=== PATIENT | male | born 1955 | race African-American/Black ===

== ENCOUNTER 2020-02-26 20:22 | Emergency (ER) | payer SELFPAY ==
[~2020-02-26] VITALS: Ht 170.2 cm; Wt 75.0 kg
[2020-02-26] MEDS ORDERED: MULTIVIT INFUSN,ADULT 4,VIT K 10 ML, THIAMINE INJ 100 MG, FOLIC ACID INJ 1 MG in IV NOR... IV ONE (21:00)
[2020-02-26 21:08] LABS: BASO # 0.1 x10^3/uL (0.0-0.2); BASO % 1 % (0-3); EOS # 0.3 x10^3/uL (0.0-0.7); EOS % 3 % (0-3); HEMOGLOBIN 16.3 g/dL (13.0-17.5); LYMPH # 2.5 x10^3/uL (1.0-4.8); LYMPH % 28 % (24-48); MEAN CORPUSCULAR HEMOGLOBIN 30 pg (25-35); MEAN CORPUSCULAR HGB CONC 33 g/dL (31-37); MEAN CORPUSCULAR VOLUME 89 fL (79-100); MONO # 0.4 x10^3/uL (0.0-1.1); MONO % 5 % (0-9); NEUT # 5.7 x10^3/uL (1.8-7.7); NEUT % 64 % (31-73); PLATELET COUNT 262 x10^3/uL (140-400); RED BLOOD COUNT 5.49 x10^6/uL (4.30-5.70); RED CELL DISTRIBUTION WIDTH 15.8 % (11.5-14.5); WHITE BLOOD COUNT 8.9 x10^3/uL (4.0-11.0)
[2020-02-26 21:14] LABS: CALCIUM 8.6 mg/dL (8.5-10.1); CREATININE 0.9 mg/dL (0.7-1.3); GFR 102.8; POTASSIUM 3.6 mmol/L (3.5-5.1)
[2020-02-26 21:20] LABS: ALBUMIN 4.3 g/dL (3.4-5.0); ALBUMIN/GLOBULIN RATIO 1.1 (1.0-1.7); TOTAL BILIRUBIN 0.4 mg/dL (0.2-1.0); TOTAL PROTEIN 8.1 g/dL (6.4-8.2)
[2020-02-26 22:23] VITALS: BP 175/104
--- NOTE | 2020-02-26 22:56 | ED.ADGEN ---
Past Medical History Past Medical History: No Pertinent History Past Surgical History: No Surgical History Smoking Status: Current Every Day Smoker Alcohol Use: Occasionally General Adult EDM: Chief Complaint: ALCOHOL INTOXICATION HPI: HPI: Patient is a 64 year old AA male who presents emergency department via EMS with complaints of alcohol intoxication. EMS reports the patient was found walking on the side of the road and a motor coach driver who was concerned about him called 911. Patient reports that he was walking home to take care of his dog he denies any complaints. Patient reports that he was almost to his house and he is not sure why the ambulance came to talk to him. Patient denies any pain at this time. Limited HPI due to patient's intoxicated condition. Review of Systems: Review of Systems: Complete ROS is negative unless otherwise noted in HPI. Current Medications: Current Medications Medications (Trade) Dose Ordered Sig/Christine Start Time Stop Time Status Last Admin Dose Admin Multivitamins 10 ml/Thiamine HCl 100 mg/Folic Acid 1 mg/Sodium Chloride 1,011.2 ml @ 1,000.088 mls/hr 1X ONCE 02/26/20 21:00 02/26/20 22:00 DC 02/26/20 21:03 1,000.088 MLS/HR Allergies: Allergies: Allergies Coded Allergies Type Severity Reaction Last Updated Verified No Known Drug Allergies 02/26/20 No Physical Exam: PE: See Above Constitutional: Well developed, well nourished, no acute distress, intoxicated, unkept appearance HENT: Normocephalic, atraumatic, bilateral external ears normal, nose normal. [] Eyes: PERRLA, EOMI, conjunctiva normal, no discharge. [] Neck: Normal range of motion, no stridor. [] Cardiovascular:Heart rate regular rhythm Lungs & Thorax: Respirations even and unlabored, no retractions, no respiratory distress Abdomen: soft, no tenderness Skin: Warm, dry, no erythema, no rash. [] Extremities: No cyanosis, ROM intact, no edema. [] Neurologic: Alert and oriented X 3, no focal deficits noted. [] Psychologic: Affect intoxicated, judgement normal, mood normal Current Patient Data: Labs: Laboratory Tests Test 02/26/20 20:59 White Blood Count 8.9 x10^3/uL (4.0-11.0) Red Blood Count 5.49 x10^6/uL (4.30-5.70) Hemoglobin 16.3 g/dL (13.0-17.5) Hematocrit 49.0 % (39.0-53.0) Mean Corpuscular Volume 89 fL (79-100) Mean Corpuscular Hemoglobin 30 pg (25-35) Mean Corpuscular Hemoglobin Concent 33 g/dL (31-37) Red Cell Distribution Width 15.8 % (11.5-14.5) H Platelet Count 262 x10^3/uL (140-400) Neutrophils (%) (Auto) 64 % (31-73) Lymphocytes (%) (Auto) 28 % (24-48) Monocytes (%) (Auto) 5 % (0-9) Eosinophils (%) (Auto) 3 % (0-3) Basophils (%) (Auto) 1 % (0-3) Neutrophils # (Auto) 5.7 x10^3/uL (1.8-7.7) Lymphocytes # (Auto) 2.5 x10^3/uL (1.0-4.8) Monocytes # (Auto) 0.4 x10^3/uL (0.0-1.1) Eosinophils # (Auto) 0.3 x10^3/uL (0.0-0.7) Basophils # (Auto) 0.1 x10^3/uL (0.0-0.2) Sodium Level 147 mmol/L (136-145) H Potassium Level 3.6 mmol/L (3.5-5.1) Chloride Level 107 mmol/L (98-107) Carbon Dioxide Level 28 mmol/L (21-32) Anion Gap 12 (6-14) Blood Urea Nitrogen 9 mg/dL (8-26) Creatinine 0.9 mg/dL (0.7-1.3) Estimated GFR (Cockcroft-Gault) 102.8 BUN/Creatinine Ratio 10 (6-20) Glucose Level 118 mg/dL (70-99) H Calcium Level 8.6 mg/dL (8.5-10.1) Total Bilirubin 0.4 mg/dL (0.2-1.0) Aspartate Amino Transferase (AST) 24 U/L (15-37) Alanine Aminotransferase (ALT) 24 U/L (16-63) Alkaline Phosphatase 130 U/L (46-116) H Total Protein 8.1 g/dL (6.4-8.2) Albumin 4.3 g/dL (3.4-5.0) Albumin/Globulin Ratio 1.1 (1.0-1.7) Ethyl Alcohol Level 305 mg/dL (0-10) H Laboratory Tests 02/26/20 20:59 Laboratory Tests 02/26/20 20:59 Vital Signs: Vital Signs Date Time Temp Pulse Resp B/P (MAP) Pulse Ox O2 Delivery O2 Flow Rate FiO2 02/27/20 04:30 74 95 Room Air 02/26/20 22:23 175/104 (127) 02/26/20 20:44 97.6 18 97.6 EKG: EKG: [] Heart Score: Risk Factors: Risk Factors: DM, Current or recent (<one month) smoker, HTN, HLP, family h istory of CAD, obesity. Risk Scores: Score 0 - 3: 2.5% MACE over next 6 weeks - Discharge Home Score 4 - 6: 20.3% MACE over next 6 weeks - Admit for Clinical Observation Score 7 - 10: 72.7% MACE over next 6 weeks - Early Invasive Strategies Radiology/Procedures: Radiology/Procedures: [] Course & Med Decision Making: Course & Med Decision Making Pertinent Labs and Imaging studies reviewed. (See chart for details) 64-year-old male presented to the emergency department via EMS after a stranger called 911 concerned about the patient Patient denied any complaints Work-up included labs, patient was given 1 banana bag while in the ER. CBC was unremarkable; CMP revealed glucose of 118, sodium 147, and alk phos of 130 otherwise unremarkable; patient's blood alcohol level was 305. [id number] attempted to walk patient to assess clinical sobriety, the patient is unable to ambulate at this time patient returns to room to sleep. Will reassess patient when he awakens [id number]- Report to Dr. Maddox. I received sign out. Pt awaiting sober re-evaluation with steady gait (unable to ambulate 2/2 intoxication). Pt eloped from hospital without notifying medical staff. I had not seen or evaluated pt prior to pt eloping. Kenneth Disclaimer: Kenneth Disclaimer: This electronic medical record was generated, in whole or in part, using a voice recognition dictation system. Departure Departure Impression: Primary Impression: Alcohol intoxication Disposition: 01 DC HOME SELF CARE/HOMELESS Condition: STABLE Referrals: NO PCP (PCP) Patient Instructions: Alcohol Intoxication, [id number] Additional Instructions: Stop drinking alcohol. Follow up with your primary care doctor next week. Return to the ER if symptoms worsen. [facility] [address] [place] [address] [facility] [address] [facility] [place] [address] [facility] [address] [facility] [place] [address] [facility] [address] [place] [address] [facility] [address] [place] [address] [address] [place] [address] [facility] [address] [place] [address] [facility] [address] [place] [address] [facility] [address] [place] [address] [facility] [address] [place] [address] Problem Qualifiers Primary Impression: Alcohol intoxication Complication of substance-induced condition: uncomplicated Qualified Codes: F10.920 - Alcohol use, unspecified with intoxication, uncomplicated ANDREW PRYOR APRN Feb 26, 2020 22:56 ANGELINE MADDOX DO Feb 27, 2020 06:01
== END 2020-02-27 05:30 | disposition home or self-care (01) ==
LOC: ER 20:22
DX: F10.229 Alcohol dependence with intoxication, unspecified (principal); F17.200 Nicotine dependence, unspecified, uncomplicated
CPT/HCPCS: 36415; 80053; 85025; 96365; 99285; G0480; J3411; J3490; J7030

== ENCOUNTER 2021-06-02 10:20 | Inpatient (IN) | payer MEDICARE ==
[~2021-06-02] VITALS: Ht 175.3 cm; Wt 85.0 kg
[2021-06-02] VITALS (15 sets, daily range): BP systolic 85–184; BP diastolic 46–83
--- NOTE | 2021-06-02 10:43 | PHYS DOC ---
Past Medical History Past Medical History: No Pertinent History Past Surgical History: No Surgical History Smoking Status: Current Every Day Smoker Alcohol Use: Occasionally Adult General Chief Complaint Chief Complaint: ABDOMINAL PAIN HPI HPI Patient is a 65 year old male presenting to the emergency department for GI bleeding symptoms says he says starting this morning he started having abdominal cramping with bowel movements and had large dark red stools with a large bowel movement here as well that was obviously bloody. Patient says that he has been having bloody bowel movements for the past 2 weeks and that the reason he came to the emergency department today is because he had a syncopal episode. Patient had systolic blood pressures in the 90s to 100 region with EMS he is slightly tachycardic. Patient says that he takes aspirin intermittently but denies any other blood thinners and he denies drinking alcohol or taking NSAIDs on a regular basis. Patient appears ill but is nontoxic with slight tachycardia and hypotension noted. Review of Systems Review of Systems Constitutional: Denies fever or chills [] Eyes: Denies change in visual acuity, redness, or eye pain [] HENT: Denies nasal congestion or sore throat [] Respiratory: Denies cough or shortness of breath [] Cardiovascular: No additional information not addressed in HPI [] GI: + abdominal pain. No nausea, vomiting. + bloody stools or diarrhea [] : Denies dysuria or hematuria [] Musculoskeletal: Denies back pain or joint pain [] Integument: Denies rash or skin lesions [] Neurologic: Denies headache, focal weakness or sensory changes [] Endocrine: Denies polyuria or polydipsia [] All other systems were reviewed and found to be within normal limits, except as documented in this note. Current Medications Current Medications Current Medications Medications (Trade) Dose Ordered Sig/Christine Start Time Stop Time Status Last Admin Dose Admin Pantoprazole Sodium (PROTONIX VIAL for IV PUSH) 80 mg 1X ONCE 06/02/21 10:45 06/02/21 11:10 DC 06/02/21 11:00 80 MG Pantoprazole Sodium 80 mg/ Sodium Chloride 100 ml @ 10 mls/hr 1X ONCE 06/02/21 10:45 06/02/21 20:44 06/02/21 11:00 10 MLS/HR Sodium Chloride 1,000 ml @ 1,000 mls/hr 1X ONCE 06/02/21 10:45 06/02/21 11:44 DC 06/02/21 11:00 1,000 MLS/HR Allergies Allergies Physical Exam Physical Exam Constitutional: Ill-appearing male in no acute distress HENT: Normocephalic, atraumatic, bilateral external ears normal, oropharynx moist, no oral exudates, nose normal. [] Eyes: PERRLA, EOMI, conjunctiva normal, no discharge. [] Neck: Normal range of motion, no tenderness, supple, no stridor. [] Cardiovascular:Heart rate regular rhythm, no murmur [] Lungs & Thorax: Bilateral breath sounds clear to auscultation [] Abdomen: Bowel sounds normal, soft, no tenderness, no masses, no pulsatile masses. [] Skin: Warm, dry, no erythema, no rash. [] Back: No tenderness, no CVA tenderness. [] Extremities: No tenderness, no cyanosis, no clubbing, ROM intact, no edema. [] Neurologic: Alert and oriented X 3, normal motor function, normal sensory function, no focal deficits noted. [] Psychologic: Affect normal, judgement normal, mood normal. [] Current Patient Data Vital Signs Vital Signs Date Time Temp Pulse Resp B/P (MAP) Pulse Ox O2 Delivery O2 Flow Rate FiO2 06/02/21 10:20 98.5 95 17 130/70 (90) 95 Nasal Cannula 2.0 98.5 Lab Values Laboratory Tests Test 06/02/21 10:36 White Blood Count 11.2 x10^3/uL (4.0-11.0) H Red Blood Count 1.70 x10^6/uL (4.30-5.70) L Hemoglobin 4.9 g/dL (13.0-17.5) *L Hematocrit 15.3 % (39.0-53.0) L Mean Corpuscular Volume 90 fL (79-100) Mean Corpuscular Hemoglobin 29 pg (25-35) Mean Corpuscular Hemoglobin Concent 32 g/dL (31-37) Red Cell Distribution Width 15.8 % (11.5-14.5) H Platelet Count 217 x10^3/uL (140-400) Neutrophils (%) (Auto) 70 % (31-73) Lymphocytes (%) (Auto) 25 % (24-48) Monocytes (%) (Auto) 5 % (0-9) Eosinophils (%) (Auto) 0 % (0-3) Basophils (%) (Auto) 0 % (0-3) Neutrophils # (Auto) 7.8 x10^3/uL (1.8-7.7) H Lymphocytes # (Auto) 2.8 x10^3/uL (1.0-4.8) Monocytes # (Auto) 0.5 x10^3/uL (0.0-1.1) Eosinophils # (Auto) 0.0 x10^3/uL (0.0-0.7) Basophils # (Auto) 0.0 x10^3/uL (0.0-0.2) Prothrombin Time 16.4 SEC (11.7-14.0) H Prothrombin Time INR 1.4 (0.8-1.1) H Activated Partial Thromboplast Time 22 SEC (24-38) L Sodium Level 139 mmol/L (136-145) Potassium Level 3.3 mmol/L (3.5-5.1) L Chloride Level 104 mmol/L (98-107) Carbon Dioxide Level 18 mmol/L (21-32) L Anion Gap 17 (6-14) H Blood Urea Nitrogen 32 mg/dL (8-26) H Creatinine 1.6 mg/dL (0.7-1.3) H Estimated GFR (Cockcroft-Gault) 52.8 BUN/Creatinine Ratio 20 (6-20) Glucose Level 240 mg/dL (70-99) H Calcium Level 7.9 mg/dL (8.5-10.1) L Total Bilirubin 0.2 mg/dL (0.2-1.0) Aspartate Amino Transferase (AST) 11 U/L (15-37) L Alanine Aminotransferase (ALT) 9 U/L (16-63) L Alkaline Phosphatase 54 U/L (46-116) Total Protein 4.7 g/dL (6.4-8.2) L Albumin 2.4 g/dL (3.4-5.0) L Albumin/Globulin Ratio 1.0 (1.0-1.7) Lipase 70 U/L (73-393) L Laboratory Tests 06/02/21 10:36 Laboratory Tests 06/02/21 10:36 EKG EKG Normal sinus rhythm at 95 bpm with normal axis no deviation no ST elevation or depression normal T waves with a prolonged QTC at 514 ms. Radiology/Procedures Radiology/Procedures [] Course & Med Decision Making Course & Med Decision Making Patient is quite anemic from his GI bleed and 2 units of crossmatched blood were ordered in addition to Protonix bolus and drip. Patient will be admitted to the ICU in critical condition with GI consultation pending. Critical care time of 35 minutes. Dragon Disclaimer Dragon Disclaimer This electronic medical record was generated, in whole or in part, using a voice recognition dictation system. Departure Departure Impression: Primary Impression: GI bleed Additional Impressions: Anemia Renal insufficiency Disposition: ADMITTED INPATIENT Admitting Physician: JUSTIN Condition: CRITICAL Referrals: NO PCP (PCP) Problem Qualifiers Primary Impression: GI bleed GI bleed type/associated pathology: unspecified gastrointestinal hemorrhage type Qualified Codes: K92.2 - Gastrointestinal hemorrhage, unspecified Additional Impressions: Anemia Anemia type: iron deficiency Iron deficiency anemia type: unspecified iron deficiency Qualified Codes: D50.9 - Iron deficiency anemia, unspecified CASSANDRA CASTILLO DO Jun 02, 2021 10:43
[2021-06-02] MEDS ORDERED: PANTOPRAZOLE IV PUSH 40 MG VIAL. IVP ONE (10:45)
[2021-06-02] MEDS ORDERED: IV NORMAL SALINE 1000ML BAG 1,000 ML IV ONE (10:45)
[2021-06-02] MEDS ORDERED: PANTOPRAZOLE SODIUM IV DRIP 80 MG in IV NORMAL SALINE 100ML 100 ML IV ONE (10:45)
[2021-06-02 11:13] LABS: BASO % 0 % (0-3); EOS % 0 % (0-3); HEMATOCRIT 15.3 % (39.0-53.0); LYMPH # 2.8 x10^3/uL (1.0-4.8); LYMPH % 25 % (24-48); MEAN CORPUSCULAR HEMOGLOBIN 29 pg (25-35); MEAN CORPUSCULAR HGB CONC 32 g/dL (31-37); MEAN CORPUSCULAR VOLUME 90 fL (79-100); MONO # 0.5 x10^3/uL (0.0-1.1); MONO % 5 % (0-9); NEUT # 7.8 x10^3/uL (1.8-7.7); NEUT % 70 % (31-73); PLATELET COUNT 217 x10^3/uL (140-400); RED CELL DISTRIBUTION WIDTH 15.8 % (11.5-14.5); WHITE BLOOD COUNT 11.2 x10^3/uL (4.0-11.0)
[2021-06-02 11:18] LABS: HEMOGLOBIN 4.9 g/dL (13.0-17.5)
[2021-06-02 11:37] LABS: PROTHROMBIN TIME PATIENT 16.4 SEC (11.7-14.0)
[2021-06-02 11:42] LABS: CALCIUM 7.9 mg/dL (8.5-10.1); CREATININE 1.6 mg/dL (0.7-1.3); GFR 52.8; POTASSIUM 3.3 mmol/L (3.5-5.1)
[2021-06-02 11:49] LABS: ALBUMIN 2.4 g/dL (3.4-5.0); TOTAL BILIRUBIN 0.2 mg/dL (0.2-1.0); TOTAL PROTEIN 4.7 g/dL (6.4-8.2)
[2021-06-02] MEDS ORDERED: IOHEXOL 300 MG/ML 100ML VIAL. IV ONE (12:45)
--- NOTE | 2021-06-02 12:50 | RAD ---
CT abdomen pelvis with contrast. HISTORY: Pain, large bloody bowel movement CT abdomen pelvis was done using 60 mL Omnipaque 300 contrast. Lung bases are clear. There is no effu stuart. There are multiple hepatic cysts. Spleen is unremarkable. Adrenal glands are normal. Pancreas i s normal. There is no calcified gallstone. There is no mass or hydronephrosis in the kidneys. There i s no small bowel obstruction. Bladder is distended. Appendix is normal. There is not CT evidence of c olitis or ischemic colon. Stomach is irregular with a possible large gastric ulcer. Upper endoscopy m ay be of benefit. IMPRESSION: 1. Multiple hepatic cysts. 2. Irregular gastric antrum possible large gastric ulcer. 3. No bowel obstruction. 4. Distended bladder PQRS Compliance Statement: One or more of the following individualized dose reduction techniques were utilized for this examinat ion: 1. Automated exposure control 2. Adjustment of the mA and/or kV according to patient size 3. Use of iterative reconstruction technique Electronically signed by: Isauro Torres MD (06/02/2021 12:48 PM) [facility]
[2021-06-02] MEDS ORDERED: CONTRAST GIVEN. MC PRN (13:00)
--- NOTE | 2021-06-02 13:09 | PDOC2 ---
GI CONSULT Date of Service: DATE: 06/02/21 TIME: 12:47 Reason For Consult: GI bleeding, anemia HPI: HPI: 65 y/o male seen in ER - discussed w/ ER physician while unable to use [employer] earlier - asked to see for GI bleeding and anemia, had large dark red stool in ER, noted w/ mild tachycardia and some hypotension improved w/ IVF. Ill x 2 weeks. Began with "lower" abdominal discomfort "like indigestion." Associated w/ brown stool w/ dark red blood and red-brown ("bile and blood") emesis. Pain has resolved. Last vomited this morning and last had bloody stool in ER today as mentioned above. H/o heartburn - takes Pepto-Bismol (and has recently). No dysphagia, chronic diarrhea or constipation, or weight loss. Some decreased appetite during this time. No previous EGD or colonoscopy. No GB, liver, pancreas, or PUD history. No h/o anemia, no past blood transfusions. PRN ASA and ibuprofen for back aches. Says only PMH is HTN - has been off meds since released from [facility]. Similar symptoms w/ "dark stools and dizziness" a few years ago while in [facility]. Was told his blood pressure was low. Seen in ER 02/2020 - intoxicated (alcohol level >300) at that time w/ Hgb 16.3. PMH: PMH: HTN FH: Family History: No pertinent hx (denies GI cancers) Social History: Smoke: <1 pack per day ALCOHOL: other (previously drank 6-7 beers daily, none x 9 months) Drugs: None ROS: GEN: +feels cold w/ blood transfusion HEENT: Denies blurred vision, sore throat CV: Denies chest pain RESP: Denies shortness of air, cough GI: Per HPI : Denies hematuria, dysuria ENDO: Denies weight changes NEURO: Denies confusion, dizziness MSK: +chronic back pain SKIN: Denies jaundice, pruritus Vitals: Vitals: Vital Signs Date Time Temp Pulse Resp B/P (MAP) Pulse Ox O2 Delivery O2 Flow Rate FiO2 06/02/21 12:36 97.8 93 17 156/85 (108) 97 Nasal Cannula 2.0 97.8 Labs: Labs: Laboratory Tests Test 06/02/21 10:36 White Blood Count 11.2 x10^3/uL (4.0-11.0) Red Blood Count 1.70 x10^6/uL (4.30-5.70) Hemoglobin 4.9 g/dL (13.0-17.5) Hematocrit 15.3 % (39.0-53.0) Mean Corpuscular Volume 90 fL (79-100) Mean Corpuscular Hemoglobin 29 pg (25-35) Mean Corpuscular Hemoglobin Concent 32 g/dL (31-37) Red Cell Distribution Width 15.8 % (11.5-14.5) Platelet Count 217 x10^3/uL (140-400) Neutrophils (%) (Auto) 70 % (31-73) Lymphocytes (%) (Auto) 25 % (24-48) Monocytes (%) (Auto) 5 % (0-9) Eosinophils (%) (Auto) 0 % (0-3) Basophils (%) (Auto) 0 % (0-3) Neutrophils # (Auto) 7.8 x10^3/uL (1.8-7.7) Lymphocytes # (Auto) 2.8 x10^3/uL (1.0-4.8) Monocytes # (Auto) 0.5 x10^3/uL (0.0-1.1) Eosinophils # (Auto) 0.0 x10^3/uL (0.0-0.7) Basophils # (Auto) 0.0 x10^3/uL (0.0-0.2) Prothrombin Time 16.4 SEC (11.7-14.0) Prothromb Time International Ratio 1.4 (0.8-1.1) Activated Partial Thromboplast Time 22 SEC (24-38) Sodium Level 139 mmol/L (136-145) Potassium Level 3.3 mmol/L (3.5-5.1) Chloride Level 104 mmol/L (98-107) Carbon Dioxide Level 18 mmol/L (21-32) Anion Gap 17 (6-14) Blood Urea Nitrogen 32 mg/dL (8-26) Creatinine 1.6 mg/dL (0.7-1.3) Estimated GFR (Cockcroft-Gault) 52.8 BUN/Creatinine Ratio 20 (6-20) Glucose Level 240 mg/dL (70-99) Calcium Level 7.9 mg/dL (8.5-10.1) Total Bilirubin 0.2 mg/dL (0.2-1.0) Aspartate Amino Transf (AST/SGOT) 11 U/L (15-37) Alanine Aminotransferase (ALT/SGPT) 9 U/L (16-63) Alkaline Phosphatase 54 U/L (46-116) Total Protein 4.7 g/dL (6.4-8.2) Albumin 2.4 g/dL (3.4-5.0) Albumin/Globulin Ratio 1.0 (1.0-1.7) Lipase 70 U/L (73-393) Allergies: Coded Allergies: No Known Drug Allergies (Unverified , 06/02/21) Medications: Current Medications Medications (Trade) Dose Ordered Sig/Christine Route PRN Reason Start Time Stop Time Status Last Admin Dose Admin Sodium Chloride 1,000 ml @ 1,000 mls/hr 1X ONCE IV 06/02/21 10:45 06/02/21 11:44 DC 06/02/21 11:00 Pantoprazole Sodium 80 mg/ Sodium Chloride 100 ml @ 10 mls/hr 1X ONCE IV 06/02/21 10:45 06/02/21 20:44 06/02/21 11:00 Pantoprazole Sodium (PROTONIX VIAL for IV PUSH) 80 mg 1X ONCE IVP 06/02/21 10:45 06/02/21 11:10 DC 06/02/21 11:00 Imaging: Imaging: CT A/P HISTORY: Pain, large bloody bowel movement CT abdomen pelvis was done using 60 mL Omnipaque 300 contrast. Lung bases are clear. There is no effusion. There are multiple hepatic cysts. Spleen is unremarkable. Adrenal glands are normal. Pancreas is normal. There is no calcified gallstone. There is no mass or hydronephrosis in the kidneys. There is no small bowel obstruction. Bladder is distended. Appendix is normal. There is not CT evidence of colitis or ischemic colon. Stomach is irregular with a possible large gastric ulcer. Upper endoscopy may be of benefit. IMPRESSION: 1. Multiple hepatic cysts. 2. Irregular gastric antrum possible large gastric ulcer. 3. No bowel obstruction. 4. Distended bladder PE: GEN: NAD HEENT: Atraumatic, PERRL LUNGS: CTAB, NC 2L HEART: borderline tachycardic ABD: NABS, S/ND/NT EXTREMITY: No edema SKIN: No rashes, no jaundice NEURO/PSYCH: A & O 3 A/P: A/P: Abdominal discomfort, vomiting/?hematemesis, hematochezia/melena Profound anemia, mild coagulopathy, ISMAEL Abnormal CT - irregular gastric antrum possible large gastric ulcer. H/o heartburn/dyspepsia - takes Pepto PRN CRC screen - none Hepatic cysts - noted on CT H/o daily alcohol - sober x 9 months PRN NSAID use -- Agree w/ transfusions, PPI drip, NPO. May need to consider EGD - pt agreeable - will d/w Dr. Galloway. VASU BELCHER Jun 02, 2021 13:09
--- NOTE | 2021-06-02 13:28 | PDOC1 ---
History and Physical Date of Admission Date of Admission DATE: 06/02/21 TIME: 13:28 Identification/Chief Complaint Chief Complaint Blood in stool Source Source: Patient History of Present Illness History of Present Illness Mr Jordan is a 65 y/o male w/ PMHx HTN who comes to ED via EMS c/o nausea and vomiting in the morning prior to arrival that was preceded by 2 weeks of blood in stool. Had a large maroon bowel movement in ED Notes cramping abdominal pain that has been progressive and colicky. It has not been relieved by pepto-bismol. Notes a syncopal episode in bathroom this morning while sitting on the toilet he blacked out while having a BM, did not fall. Previously a heavy drinker and smoker, he mumbles that he quit after being "lock ed up". Occasionally takes ibuprofen, but has not recently. No prior colonoscopy or GI eval. WBC 11.2, Hb 4.9, platelets 217, INR 1.4, PTT 22, NA 139, K3.3, BUN 32, CR 1.6, glucose 240, calcium 7.9 total bilirubin 0.2, AST 11, ALT 9, alkaline phosphatase 54, albumin 2.4, lipase 70 CT abdomen pelvis with multiple hepatic cysts and gastric antrum irregularities concerning for gastric ulcer, no bowel obstruction, distended bladder. Tranfusion, protonix and ICU bed ordered. Past Medical History Cardiovascular: HTN Past Surgical History Past Surgical History: No pertinent history Family History Family History: Hypertension Social History Smoke: Quit ALCOHOL: other (previously drank 6-7 beers daily, none x 9 months) Drugs: None Current Medications Current Medications Current Medications Sodium Chloride 1,000 ml @ 1,000 mls/hr 1X ONCE IV Last administered on 06/02/21at 11:00; Start 06/02/21 at 10:45; Stop 06/02/21 at 11:44; Status DC Pantoprazole Sodium 80 mg/ Sodium Chloride 100 ml @ 10 mls/hr 1X ONCE IV Last administered on 06/02/21at 11:00; Start 06/02/21 at 10:45; Stop 06/02/21 at 20:44 Pantoprazole Sodium (PROTONIX VIAL for IV PUSH) 80 mg 1X ONCE IVP Last administered on 06/02/21at 11:00; Start 06/02/21 at 10:45; Stop 06/02/21 at 11:10; Status DC Iohexol (Omnipaque 300 Mg/ml) 60 ml 1X ONCE IV Last administered on 06/02/21at 12:54; Start 06/02/21 at 12:45; Stop 06/02/21 at 12:46; Status DC Info (CONTRAST GIVEN -- Rx MONITORING) 1 each PRN DAILY PRN MC SEE COMMENTS; Start 06/02/21 at 13:00; Stop 06/04/21 at 12:59 Allergies Allergies: Coded Allergies: No Known Drug Allergies (Unverified , 06/02/21) ROS General: YES: Fatigue, Malaise; No: Chills, Night Sweats, Appetite, Other PSYCHOLOGICAL ROS: No: Anxiety, Behavioral Disorder, Concentration difficultie, Decreased libido, Depression, Disorientation, Hallucinations, Hostility, Irritablity, Memory difficulties, Mood Swings, Obsessive thoughts, Physical abuse, Sexual abuse, Sleep disturbances, Suicidal ideation, Other Eyes: No Blurry vision, No Decreased vision, No Double vision, No Dry eyes, No Excessive tearing, No Eye Pain, No Itchy Eyes, No Loss of vision, No Photophobia, No Scotomata, No Uses contacts, No Uses glasses, No Other HEENT: No: Heacaches, Visual Changes, Hearing change, Nasal congestion, Nasal discharge, Oral lesions, Sinus pain, Sore Throat, Epistaxis, Sneezing, Snoring, Tinnitus, Vertigo, Vocal changes, Other ALLERGY AND IMMUNOLOGY: No: Hives, Insect Bite Sensitivity, Itchy/Watery Eyes, Nasal Congestion, Post Nasal Drip, Seasonal Allergies, Other Hematological and Lymphatic: No: Bleeding Problems, Blood Clots, Blood Transfusions, Brusing, Night Sweats, Pallor, Swollen Lymph Nodes, Other ENDOCRINE: No: Breast Changes, Galactorrhea, Hair Pattern Changes, Hot Flashes, Malaise/lethargy, Mood Swings, Palpitations, Polydipsia/polyuria, Skin Changes, Temperature Intolerance, Unexpected Weight Changes, Other Breast: No New/Changing Breast Lumps, No Nipple changes, No Nipple discharge, No Other Respiratory: No: Cough, Hemoptysis, Orthopnea, Pleuritic Pain, Shortness of breath, SOB with excertion, Sputum Changes, Stridor, Tachypnea, Wheezing, Other Cardiovascular: No Chest Pain, No Palpitations, No Orthopnea, No Paroxysmal Noc. Dyspnea, No Edema, No Lt Headedness, No Other Gastrointestinal: Yes Melena; No Nausea, No Vomiting, No Abdominal Pain, No Diarrhea, No Constipation, No Hematochezia, No Other Genitourinary: No Dysuria, No Frequency, No Incontinence, No Hematuria, No Retention, No Discharge, No Urgency, No Pain, No Flank Pain, No Other, No , No , No , No , No , No , No Musculoskeletal: Yes Muscular Weakness; No Gait Disturbance, No Joint Pain, No Joint Stiffness, No Joint Swelling, No Muscle Pain, No Pain In:, No Swelling In:, No Other Neurological: Yes Dizziness; No Behavorial Changes, No Bowel/Bladder ControlChng, No Confusion, No Gait D isturbance, No Headaches, No Impaired Coord/balance, No Memory Loss, No Numbness/Tingling, No Seizures, No Speech Problems, No Tremors, No Visual Changes, No Weakness, No Other Skin: No Dry Skin, No Eczema, No Hair Changes, No Lumps, No Mole Changes, No Mottling, No Nail Changes, No Pruritus, No Rash, No Skin Lesion Changes, No Other, No Acne Physical Exam General: Alert, Oriented X3, Cooperative, mild distress HEENT: Atraumatic, PERRLA, EOMI Lungs: Clear to auscultation, Normal air movement Heart: S1S2, RRR, no thrills, no rubs, no gallops, no murmurs Abdomen: Normal bowel sounds, Soft, No tenderness, No hepatosplenomegaly, No masses Rectal Exam: other Extremities: No clubbing, No cyanosis, No edema, Normal pulses, No tenderness/swelling Skin: No rashes, No breakdown, No significant lesion Neuro: Normal gait, Normal speech, Strength at 5/5 X4 ext, Normal tone, Sensation intact, Cranial nerves 3-12 NL, Reflexes 2+ Psych/Mental Status: Mental status NL, Mood NL Vitals Vitals Vital Signs Date Time Temp Pulse Resp B/P (MAP) Pulse Ox O2 Delivery O2 Flow Rate FiO2 06/02/21 12:36 97.8 93 17 156/85 (108) 97 Nasal Cannula 2.0 97.8 Labs Labs Laboratory Tests Test 06/02/21 10:36 White Blood Count 11.2 x10^3/uL (4.0-11.0) Red Blood Count 1.70 x10^6/uL (4.30-5.70) Hemoglobin 4.9 g/dL (13.0-17.5) Hematocrit 15.3 % (39.0-53.0) Mean Corpuscular Volume 90 fL (79-100) Mean Corpuscular Hemoglobin 29 pg (25-35) Mean Corpuscular Hemoglobin Concent 32 g/dL (31-37) Red Cell Distribution Width 15.8 % (11.5-14.5) Platelet Count 217 x10^3/uL (140-400) Neutrophils (%) (Auto) 70 % (31-73) Lymphocytes (%) (Auto) 25 % (24-48) Monocytes (%) (Auto) 5 % (0-9) Eosinophils (%) (Auto) 0 % (0-3) Basophils (%) (Auto) 0 % (0-3) Neutrophils # (Auto) 7.8 x10^3/uL (1.8-7.7) Lymphocytes # (Auto) 2.8 x10^3/uL (1.0-4.8) Monocytes # (Auto) 0.5 x10^3/uL (0.0-1.1) Eosinophils # (Auto) 0.0 x10^3/uL (0.0-0.7) Basophils # (Auto) 0.0 x10^3/uL (0.0-0.2) Prothrombin Time 16.4 SEC (11.7-14.0) Prothromb Time International Ratio 1.4 (0.8-1.1) Activated Partial Thromboplast Time 22 SEC (24-38) Sodium Level 139 mmol/L (136-145) Potassium Level 3.3 mmol/L (3.5-5.1) Chloride Level 104 mmol/L (98-107) Carbon Dioxide Level 18 mmol/L (21-32) Anion Gap 17 (6-14) Blood Urea Nitrogen 32 mg/dL (8-26) Creatinine 1.6 mg/dL (0.7-1.3) Estimated GFR (Cockcroft-Gault) 52.8 BUN/Creatinine Ratio 20 (6-20) Glucose Level 240 mg/dL (70-99) Calcium Level 7.9 mg/dL (8.5-10.1) Total Bilirubin 0.2 mg/dL (0.2-1.0) Aspartate Amino Transf (AST/SGOT) 11 U/L (15-37) Alanine Aminotransferase (ALT/SGPT) 9 U/L (16-63) Alkaline Phosphatase 54 U/L (46-116) Total Protein 4.7 g/dL (6.4-8.2) Albumin 2.4 g/dL (3.4-5.0) Albumin/Globulin Ratio 1.0 (1.0-1.7) Lipase 70 U/L (73-393) Laboratory Tests Test 06/02/21 10:36 White Blood Count 11.2 x10^3/uL (4.0-11.0) Red Blood Count 1.70 x10^6/uL (4.30-5.70) Hemoglobin 4.9 g/dL (13.0-17.5) Hematocrit 15.3 % (39.0-53.0) Mean Corpuscular Volume 90 fL (79-100) Mean Corpuscular Hemoglobin 29 pg (25-35) Mean Corpuscular Hemoglobin Concent 32 g/dL (31-37) Red Cell Distribution Width 15.8 % (11.5-14.5) Platelet Count 217 x10^3/uL (140-400) Neutrophils (%) (Auto) 70 % (31-73) Lymphocytes (%) (Auto) 25 % (24-48) Monocytes (%) (Auto) 5 % (0-9) Eosinophils (%) (Auto) 0 % (0-3) Basophils (%) (Auto) 0 % (0-3) Neutrophils # (Auto) 7.8 x10^3/uL (1.8-7.7) Lymphocytes # (Auto) 2.8 x10^3/uL (1.0-4.8) Monocytes # (Auto) 0.5 x10^3/uL (0.0-1.1) Eosinophils # (Auto) 0.0 x10^3/uL (0.0-0.7) Basophils # (Auto) 0.0 x10^3/uL (0.0-0.2) Prothrombin Time 16.4 SEC (11.7-14.0) Prothromb Time International Ratio 1.4 (0.8-1.1) Activated Partial Thromboplast Time 22 SEC (24-38) Sodium Level 139 mmol/L (136-145) Potassium Level 3.3 mmol/L (3.5-5.1) Chloride Level 104 mmol/L (98-107) Carbon Dioxide Level 18 mmol/L (21-32) Anion Gap 17 (6-14) Blood Urea Nitrogen 32 mg/dL (8-26) Creatinine 1.6 mg/dL (0.7-1.3) Estimated GFR (Cockcroft-Gault) 52.8 BUN/Creatinine Ratio 20 (6-20) Glucose Level 240 mg/dL (70-99) Calcium Level 7.9 mg/dL (8.5-10.1) Total Bilirubin 0.2 mg/dL (0.2-1.0) Aspartate Amino Transf (AST/SGOT) 11 U/L (15-37) Alanine Aminotransferase (ALT/SGPT) 9 U/L (16-63) Alkaline Phosphatase 54 U/L (46-116) Total Protein 4.7 g/dL (6.4-8.2) Albumin 2.4 g/dL (3.4-5.0) Albumin/Globulin Ratio 1.0 (1.0-1.7) Lipase 70 U/L (73-393) Images Images CT abdomen/pelvis: CT abdomen pelvis was done using 60 mL Omnipaque 300 contrast. Lung bases are clear. There is no effusion. There are multiple hepatic cysts. Spleen is unremarkable. Adrenal glands are normal. Pancreas is normal. There is no calcified gallstone. There is no mass or hydronephrosis in the kidneys. There is no small bowel obstruction. Bladder is distended. Appendix is normal. There is not CT evidence of colitis or ischemic colon. Stomach is irregular with a possible large gastric ulcer. Upper endoscopy may be of benefit. IMPRESSION: 1. Multiple hepatic cysts. 2. Irregular gastric antrum possible large gastric ulcer. 3. No bowel obstruction. 4. Distended bladder VTE Prophylaxis Ordered VTE Prophylaxis Devices: Yes VTE Pharmacological Prophylaxi: Contraindicated Assessment/Plan Assessment/Plan Acute anemia - type and screen, 2u PRBC, f/u H&H. GI consulted for consideration of EGD Blood in stool - likely upper and lower GI bleed. PPI IV. NPO Gastric mass - d/w GI to consider EGD ISMAEL - no known renal disease, likely vasomotor nephropathy from blood loss. Monitor Cr, IVF resuscitation and transfusion Hypokalemia - likely GI losses. Hold antihypertensives H/o ETOH abuse - has been sober nearly a year Hepatic cysts - noted on CT, no renal cysts noted Hyperglycemia - no DM2 history, will monitor, likely stress reaction from blood loss Severe protein calorie malnutrition - no clear etiology, likely simply malnourished, though malignancy is a possibility given abnormal gastric mass on CT Elevated INR - concerning liver synthetic function labs are abnormal, not on anticoagulation, possibly developing advanced liver disease FEN - NPO PPX - SCDs, PPI FULL CODE Dispo - ICU for life-threatening GI bleed cc time 42 min Justifications for Admission Other Justification SARATH AMAYA MD Jun 02, 2021 13:28
[2021-06-02] MEDS ORDERED: LIDOCAINE 2% PF 5 ML VIAL. ONE (15:11)
[2021-06-02] MEDS ORDERED: PROPOFOL 10 MG/ML (20ML) VIAL. IV ONE (15:11)
--- NOTE | 2021-06-02 15:35 | PDOC4 ---
PROCEDURE Procedure EGD/biopsies Indication: GI bleeding/abnormal CT Meds: per anesthesia Findings: E--Normal. GEJ at 41cm. G--Hematin in body; could suction majority. ~2 cm ulcer superior pre-pyloric antrum w/o real mass effect. Some clot adherent to the base would not wash off. Biopsies x 2 from rim of ulcer. Did not otherwise attempt to dislodge clot. Pylorus normal. D--Normal to second portion. Anibal. well. IMP: Large , biopsies pending. REC: Keep NPO for now save ice chips. Continue PPI and in ICU. If no re-bleeding over 48 hours cautiously try diet. Continue transfusions and monitor hemoglobin. Long-term should consider screening colonoscopy. On the weekend so can follow. BURAK JAMESON MD Jun 02, 2021 15:35
--- NOTE | 2021-06-02 18:34 | NUR ---
patient has had uneventful evening after returning from GI lab. Patient has rested with eyes closed, seemed to be sleeping when RN enters the room. VSS. RN updated sister twice as patient seemed to be sleeping.
[2021-06-02 20:01] LABS: HEMATOCRIT 17.8 % (39.0-53.0)
[2021-06-02 20:05] LABS: HEMOGLOBIN 5.8 g/dL (13.0-17.5)
[2021-06-02] MEDS ORDERED: traMADol 50 MG TABLET PO PRN (22:00)
[2021-06-02] MEDS ORDERED: POTASSIUM CL 20MEQ D5-0.45NACL 1,000 ML IV SCH (22:00)
[2021-06-02] MEDS ORDERED: ACETAMINOPHEN 325 MG TABLET. PO PRN (22:00)
[2021-06-02] MEDS ORDERED: ONDANSETRON PF 4 MG/2 ML VIAL. IVP PRN (22:00)
[2021-06-02] MEDS: PANTOPRAZOLE SODIUM IV DRIP 80 MG in IV NORMAL SALINE 100ML 100 ML IV SCH (23:22)
[2021-06-03] VITALS (22 sets, daily range): BP systolic 107–157; BP diastolic 55–80
[2021-06-03 07:46] LABS: HEMATOCRIT 24.3 % (39.0-53.0); RED BLOOD COUNT 2.7 x10^6/uL (4.30-5.70); RED CELL DISTRIBUTION WIDTH 14.4 % (11.5-14.5); WHITE BLOOD COUNT 13.1 x10^3/uL (4.0-11.0)
[2021-06-03 07:57] LABS: CALCIUM 7.3 mg/dL (8.5-10.1); CREATININE 1.1 mg/dL (0.7-1.3); GFR 81.3
[2021-06-03] MEDS: PANTOPRAZOLE SODIUM IV DRIP 80 MG in IV NORMAL SALINE 100ML 100 ML IV SCH ×2 (08:53→17:39)
--- NOTE | 2021-06-03 11:41 | PDOC ---
G I PROGRESS NOTE Subjective No complaints. No stool since last evening. No N, V, pain. Wonders if can have juice. Objective No reports of instability. Physical Exam Lungs clear anteriorly. RRR Abdomen soft, not tender nor distended. Review of Relevant I have reviewed the following items diane (where applicable) has been applied. Labs Laboratory Tests Test 06/02/21 10:36 06/02/21 19:45 06/03/21 07:35 White Blood Count 11.2 x10^3/uL (4.0-11.0) 13.1 x10^3/uL (4.0-11.0) Red Blood Count 1.70 x10^6/uL (4.30-5.70) 2.70 x10^6/uL (4.30-5.70) Hemoglobin 4.9 g/dL (13.0-17.5) 5.8 g/dL (13.0-17.5) 8.0 g/dL (13.0-17.5) Hematocrit 15.3 % (39.0-53.0) 17.8 % (39.0-53.0) 24.3 % (39.0-53.0) Mean Corpuscular Volume 90 fL (79-100) 90 fL (79-100) Mean Corpuscular Hemoglobin 29 pg (25-35) 30 pg (25-35) Mean Corpuscular Hemoglobin Concent 32 g/dL (31-37) 33 g/dL (31-37) 33 g/dL (31-37) Red Cell Distribution Width 15.8 % (11.5-14.5) 14.4 % (11.5-14.5) Platelet Count 217 x10^3/uL (140-400) 146 x10^3/uL (140-400) Neutrophils (%) (Auto) 70 % (31-73) Lymphocytes (%) (Auto) 25 % (24-48) Monocytes (%) (Auto) 5 % (0-9) Eosinophils (%) (Auto) 0 % (0-3) Basophils (%) (Auto) 0 % (0-3) Neutrophils # (Auto) 7.8 x10^3/uL (1.8-7.7) Lymphocytes # (Auto) 2.8 x10^3/uL (1.0-4.8) Monocytes # (Auto) 0.5 x10^3/uL (0.0-1.1) Eosinophils # (Auto) 0.0 x10^3/uL (0.0-0.7) Basophils # (Auto) 0.0 x10^3/uL (0.0-0.2) Prothrombin Time 16.4 SEC (11.7-14.0) Prothromb Time International Ratio 1.4 (0.8-1.1) Activated Partial Thromboplast Time 22 SEC (24-38) Sodium Level 139 mmol/L (136-145) 142 mmol/L (136-145) Potassium Level 3.3 mmol/L (3.5-5.1) 4.0 mmol/L (3.5-5.1) Chloride Level 104 mmol/L (98-107) 112 mmol/L (98-107) Carbon Dioxide Level 18 mmol/L (21-32) 27 mmol/L (21-32) Anion Gap 17 (6-14) 3 (6-14) Blood Urea Nitrogen 32 mg/dL (8-26) 25 mg/dL (8-26) Creatinine 1.6 mg/dL (0.7-1.3) 1.1 mg/dL (0.7-1.3) Estimated GFR (Cockcroft-Gault) 52.8 81.3 BUN/Creatinine Ratio 20 (6-20) Glucose Level 240 mg/dL (70-99) 116 mg/dL (70-99) Calcium Level 7.9 mg/dL (8.5-10.1) 7.3 mg/dL (8.5-10.1) Total Bilirubin 0.2 mg/dL (0.2-1.0) Aspartate Amino Transf (AST/SGOT) 11 U/L (15-37) Alanine Aminotransferase (ALT/SGPT) 9 U/L (16-63) Alkaline Phosphatase 54 U/L (46-116) Total Protein 4.7 g/dL (6.4-8.2) Albumin 2.4 g/dL (3.4-5.0) Albumin/Globulin Ratio 1.0 (1.0-1.7) Lipase 70 U/L (73-393) Laboratory Tests Test 06/02/21 19:45 06/03/21 07:35 Hemoglobin 5.8 g/dL (13.0-17.5) 8.0 g/dL (13.0-17.5) Hematocrit 17.8 % (39.0-53.0) 24.3 % (39.0-53.0) Mean Corpuscular Hemoglobin Concent 33 g/dL (31-37) 33 g/dL (31-37) White Blood Count 13.1 x10^3/uL (4.0-11.0) Red Blood Count 2.70 x10^6/uL (4.30-5.70) Mean Corpuscular Volume 90 fL (79-100) Mean Corpuscular Hemoglobin 30 pg (25-35) Red Cell Distribution Width 14.4 % (11.5-14.5) Platelet Count 146 x10^3/uL (140-400) Sodium Level 142 mmol/L (136-145) Potassium Level 4.0 mmol/L (3.5-5.1) Chloride Level 112 mmol/L (98-107) Carbon Dioxide Level 27 mmol/L (21-32) Anion Gap 3 (6-14) Blood Urea Nitrogen 25 mg/dL (8-26) Creatinine 1.1 mg/dL (0.7-1.3) Estimated GFR (Cockcroft-Gault) 81.3 Glucose Level 116 mg/dL (70-99) Calcium Level 7.3 mg/dL (8.5-10.1) Hemoglobin better post-transfusion. Vitals/I & O Vital Sign - Last 24 Hours 06/02/21 06/02/21 06/02/21 06/02/21 12:20 12:36 13:45 14:00 Temp 97.8 97.8 Pulse 101 93 76 76 Resp 16 17 20 20 B/P (MAP) 137/88 (104) 156/85 (108) 152/76 (101) 152/76 (101) Pulse Ox 98 97 100 98 O2 Delivery Nasal Cannula Nasal Cannula Nasal Cannula Nasal Cannula O2 Flow Rate 2.0 2.0 2.0 2.0 06/02/21 06/02/21 06/02/21 06/02/21 14:00 15:09 15:10 15:30 Temp 97.8 98.0 97.8 97.8 98.0 97.8 Pulse 86 87 85 Resp 18 18 18 B/P (MAP) 108/75 118/56 Pulse Ox 98 O2 Delivery Nasal Cannula O2 Flow Rate 2.0 06/02/21 06/02/21 06/02/21 06/02/21 15:32 15:47 16:00 16:03 Temp 97.7 97.5 97.7 97.7 97.5 97.7 Pulse 86 75 76 Resp 18 18 18 B/P (MAP) 89/53 119/76 121/75 Pulse Ox 98 100 97 O2 Delivery Nasal Cannula Nasal Cannula Nasal Cannula Nasal Cannula O2 Flow Rate 2.0 2.0 2.0 2.0 06/02/21 06/02/21 06/02/21 06/02/21 16:15 17:00 18:00 19:00 Pulse 78 74 77 98 Resp 20 20 20 20 B/P (MAP) 137/75 (95) 136/72 (93) 115/77 (90) 120/63 (82) Pulse Ox 93 94 94 92 O2 Delivery Nasal Cannula Nasal Cannula Nasal Cannula Nasal Cannula O2 Flow Rate 2.0 2.0 2.0 2.0 06/02/21 06/02/21 06/02/21 06/02/21 19:30 20:00 21:00 22:00 Temp 98.3 98.3 Pulse 109 102 98 Resp 20 16 18 B/P (MAP) 101/57 (72) 85/52 (63) 95/46 (62) Pulse Ox 95 95 95 O2 Delivery Nasal Cannula Nasal Cannula Nasal Cannula Nasal Cannula O2 Flow Rate 2.0 2.0 2.0 2.0 06/02/21 06/02/21 06/02/21 06/02/21 22:21 23:00 23:21 23:30 Temp 99.4 98.4 99.4 98.4 Pulse 98 96 94 Resp 16 16 20 B/P (MAP) 95/46 102/56 (71) 107/52 Pulse Ox 98 O2 Delivery Nasal Cannula Nasal Cannula O2 Flow Rate 2.0 2.0 06/03/21 06/03/21 06/03/21 06/03/21 00:00 00:21 01:00 01:45 Temp 98.5 98.5 97.7 98.5 98.5 97.7 Pulse 83 83 81 81 Resp 16 16 20 B/P (MAP) 125/56 (79) 125/56 112/56 (74) 112/56 Pulse Ox 100 100 O2 Delivery Nasal Cannula Nasal Cannula O2 Flow Rate 2.0 2.0 06/03/21 06/03/21 06/03/21 06/03/21 02:00 02:45 03:00 03:45 Temp 99.8 99.4 99.8 99.4 Pulse 80 76 78 70 Resp 20 20 18 16 B/P (MAP) 107/58 (74) 122/67 116/59 (78) 116/59 Pulse Ox 100 100 O2 Delivery Nasal Cannula Nasal Cannula O2 Flow Rate 2.0 2.0 06/03/21 06/03/21 06/03/21 06/03/21 04:00 04:00 04:45 05:00 Temp 99.4 98.9 99.4 98.9 Pulse 76 70 89 Resp 18 16 20 B/P (MAP) 117/59 (78) 117/59 130/69 (89) Pulse Ox 100 100 O2 Delivery Nasal Cannula Nasal Cannula Nasal Cannula O2 Flow Rate 2.0 2.0 2.0 06/03/21 06/03/21 06/03/21 05:58 06:00 08:00 Temp 99.2 99.2 Pulse 89 69 Resp 20 20 B/P (MAP) 135/72 135/72 (93) Pulse Ox 100 O2 Delivery Room Air Room Air Intake and Output 06/02/21 06/02/21 06/03/21 15:00 23:00 07:00 Intake Total 259 ml 200 ml Output Total 450 ml 400 ml Balance -191 ml -200 ml Problem List Problems Medical Problems: (1) Anemia Status: Acute (2) GI bleed Status: Acute (3) Renal insufficiency Status: Acute Assessment Gastric ulcer; clinically no signs of ongoing bleeding. Some concern for malignancy, biopsies pending. Plan of Care Note Would continue PPI drip. Could try some clears. I think OK to go out of ICU. Await biopsies. Continue to follow hemoglobin, clinically. Justicifation of Admission Dx: Justifications for Admission: Justification of Admission Dx: N/A BURAK JAMESON MD Jun 03, 2021 11:41
--- NOTE | 2021-06-03 11:53 | PDOC ---
[employer] PROGRESS NOTE Date of Service DOS: DATE: 06/03/21 TIME: 11:50 Chief Complaint Chief Complaint Acute blood loss anemia, s/p 2u PRBC, acute gastric ulcer, with melena, s/p GI intervention Gastric mass - biopsied ISMAEL - Hypokalemia - likely GI losses. Hold antihypertensives acute anion gap acidosis, better H/o ETOH abuse - Hepatic cysts - noted on CT, no renal cysts noted Hyperglycemia - no DM2 history, w Severe protein calorie malnutrition - concern for intrinsic liver disease, also INR up History of Present Illness History of Present Illness transfer out of ICU, tele sinus low 70s adat, try clears INR 1.4, not nutritional he "loves spinach" Hgb much better repeat all labs in AM, poss liver disease, priro abuse, check GGT Vitals/I&O Vitals/I&O: Vital Signs Date Time Temp Pulse Resp B/P (MAP) Pulse Ox O2 Delivery O2 Flow Rate FiO2 06/03/21 08:00 Room Air 06/03/21 06:00 69 20 135/72 (93) 100 06/03/21 05:58 99.2 99.2 06/03/21 05:00 2.0 I & O 06/02/21 06/02/21 06/03/21 15:00 23:00 07:00 Intake Total 259 ml 200 ml Output Total 450 ml 400 ml Balance -191 ml -200 ml Physical Exam General: Alert, Oriented X3, Cooperative, No acute distress Heart: Regular rate, No murmurs Abdomen: Normal bowel sounds, Soft, No tenderness, No hepatosplenomegaly, No masses Extremities: No clubbing, No cyanosis, No edema, Normal pulses, No tenderness/swelling Skin: No rashes, No breakdown, No significant lesion Labs Labs: Laboratory Tests Test 06/02/21 19:45 06/03/21 07:35 Hemoglobin 5.8 g/dL (13.0-17.5) 8.0 g/dL (13.0-17.5) Hematocrit 17.8 % (39.0-53.0) 24.3 % (39.0-53.0) Mean Corpuscular Hemoglobin Concent 33 g/dL (31-37) 33 g/dL (31-37) White Blood Count 13.1 x10^3/uL (4.0-11.0) Red Blood Count 2.70 x10^6/uL (4.30-5.70) Mean Corpuscular Volume 90 fL (79-100) Mean Corpuscular Hemoglobin 30 pg (25-35) Red Cell Distribution Width 14.4 % (11.5-14.5) Platelet Count 146 x10^3/uL (140-400) Sodium Level 142 mmol/L (136-145) Potassium Level 4.0 mmol/L (3.5-5.1) Chloride Level 112 mmol/L (98-107) Carbon Dioxide Level 27 mmol/L (21-32) Anion Gap 3 (6-14) Blood Urea Nitrogen 25 mg/dL (8-26) Creatinine 1.1 mg/dL (0.7-1.3) Estimated GFR (Cockcroft-Gault) 81.3 Glucose Level 116 mg/dL (70-99) Calcium Level 7.3 mg/dL (8.5-10.1) Assessment and Plan Assessmemt and Plan Problems Medical Problems: (1) Anemia Status: Acute (2) GI bleed Status: Acute (3) Renal insufficiency Status: Acute Comment Review of Relevant I have reviewed the following items diane (where applicable) has been applied. Medications: Current Medications Medications (Trade) Dose Ordered Sig/Christine Route PRN Reason Start Time Stop Time Status Last Admin Dose Admin Iohexol (Omnipaque 300 Mg/ml) 60 ml 1X ONCE IV 06/02/21 12:45 06/02/21 12:46 DC 06/02/21 12:54 Pantoprazole Sodium 80 mg/ Sodium Chloride 100 ml @ 10 mls/hr Q10H IV 06/02/21 20:45 06/03/21 08:53 Potassium Chloride/Dextrose/ Sod Cl 1,000 ml @ 125 mls/hr Q8H IV 06/02/21 22:00 06/03/21 05:59 DC 06/02/21 22:54 Justifications for Admission Other Justification GREGORIO CLIFTON MD Jun 03, 2021 11:53
[2021-06-03] MEDS: FOLIC/VIT B COMP W-C (RENAL) TABLET. PO SCH (12:04)
[2021-06-04] VITALS (13 sets, daily range): BP systolic 115–179; BP diastolic 61–95
[2021-06-04] MEDS: PANTOPRAZOLE SODIUM IV DRIP 80 MG in IV NORMAL SALINE 100ML 100 ML IV SCH ×2 (04:23→16:53)
[2021-06-04 04:34] LABS: BASO # 0.1 x10^3/uL (0.0-0.2); BASO % 1 % (0-3); EOS # 0.2 x10^3/uL (0.0-0.7); EOS % 2 % (0-3); HEMATOCRIT 18.7 % (39.0-53.0); LYMPH # 2.6 x10^3/uL (1.0-4.8); LYMPH % 25 % (24-48); MEAN CORPUSCULAR HEMOGLOBIN 31 pg (25-35); MEAN CORPUSCULAR HGB CONC 34 g/dL (31-37); MEAN CORPUSCULAR VOLUME 92 fL (79-100); MONO # 0.6 x10^3/uL (0.0-1.1); MONO % 6 % (0-9); NEUT # 6.7 x10^3/uL (1.8-7.7); NEUT % 66 % (31-73); PLATELET COUNT 144 x10^3/uL (140-400); RED BLOOD COUNT 2.04 x10^6/uL (4.30-5.70); RED CELL DISTRIBUTION WIDTH 14.8 % (11.5-14.5); WHITE BLOOD COUNT 10.2 x10^3/uL (4.0-11.0)
[2021-06-04 04:41] LABS: PROTHROMBIN TIME PATIENT 14.8 SEC (11.7-14.0)
[2021-06-04 04:45] LABS: HEMOGLOBIN 6.3 g/dL (13.0-17.5)
[2021-06-04 04:52] LABS: ALBUMIN/GLOBULIN RATIO 1.1 (1.0-1.7); CALCIUM 7.1 mg/dL (8.5-10.1); GFR 90.7; POTASSIUM 3.4 mmol/L (3.5-5.1); TOTAL BILIRUBIN 0.5 mg/dL (0.2-1.0); TOTAL PROTEIN 3.9 g/dL (6.4-8.2)
[2021-06-04] MEDS: FOLIC/VIT B COMP W-C (RENAL) TABLET. PO SCH (08:37)
[2021-06-04] MEDS ORDERED: POTASSIUM CHLORIDE 20 MEQ TABLET.ER. PO ONE (10:45)
--- NOTE | 2021-06-04 11:57 | PDOC ---
G I PROGRESS NOTE Subjective No complaints. Says told stools "lightening up". No N, V. Took pretty well po. Objective No reports of any new GI issues. Physical Exam Lungs clear anteriorly. RRR Abdomen soft, not tender. Review of Relevant I have reviewed the following items diane (where applicable) has been applied. Labs Laboratory Tests Test 06/02/21 19:45 06/03/21 07:35 06/04/21 04:15 Hemoglobin 5.8 g/dL (13.0-17.5) 8.0 g/dL (13.0-17.5) 6.3 g/dL (13.0-17.5) Hematocrit 17.8 % (39.0-53.0) 24.3 % (39.0-53.0) 18.7 % (39.0-53.0) Mean Corpuscular Hemoglobin Concent 33 g/dL (31-37) 33 g/dL (31-37) 34 g/dL (31-37) White Blood Count 13.1 x10^3/uL (4.0-11.0) 10.2 x10^3/uL (4.0-11.0) Red Blood Count 2.70 x10^6/uL (4.30-5.70) 2.04 x10^6/uL (4.30-5.70) Mean Corpuscular Volume 90 fL (79-100) 92 fL (79-100) Mean Corpuscular Hemoglobin 30 pg (25-35) 31 pg (25-35) Red Cell Distribution Width 14.4 % (11.5-14.5) 14.8 % (11.5-14.5) Platelet Count 146 x10^3/uL (140-400) 144 x10^3/uL (140-400) Sodium Level 142 mmol/L (136-145) 142 mmol/L (136-145) Potassium Level 4.0 mmol/L (3.5-5.1) 3.4 mmol/L (3.5-5.1) Chloride Level 112 mmol/L (98-107) 112 mmol/L (98-107) Carbon Dioxide Level 27 mmol/L (21-32) 24 mmol/L (21-32) Anion Gap 3 (6-14) 6 (6-14) Blood Urea Nitrogen 25 mg/dL (8-26) 10 mg/dL (8-26) Creatinine 1.1 mg/dL (0.7-1.3) 1.0 mg/dL (0.7-1.3) Estimated GFR (Cockcroft-Gault) 81.3 90.7 Glucose Level 116 mg/dL (70-99) 138 mg/dL (70-99) Calcium Level 7.3 mg/dL (8.5-10.1) 7.1 mg/dL (8.5-10.1) Neutrophils (%) (Auto) 66 % (31-73) Lymphocytes (%) (Auto) 25 % (24-48) Monocytes (%) (Auto) 6 % (0-9) Eosinophils (%) (Auto) 2 % (0-3) Basophils (%) (Auto) 1 % (0-3) Neutrophils # (Auto) 6.7 x10^3/uL (1.8-7.7) Lymphocytes # (Auto) 2.6 x10^3/uL (1.0-4.8) Monocytes # (Auto) 0.6 x10^3/uL (0.0-1.1) Eosinophils # (Auto) 0.2 x10^3/uL (0.0-0.7) Basophils # (Auto) 0.1 x10^3/uL (0.0-0.2) Prothrombin Time 14.8 SEC (11.7-14.0) Prothromb Time International Ratio 1.2 (0.8-1.1) BUN/Creatinine Ratio 10 (6-20) Iron Level 23 ug/dL (65-175) Total Iron Binding Capacity 161 ug/dL (250-450) Iron Saturation 14 % (15-34) Total Bilirubin 0.5 mg/dL (0.2-1.0) Gamma Glutamyl Transpeptidase 8 U/L (10-85) Aspartate Amino Transf (AST/SGOT) 9 U/L (15-37) Alanine Aminotransferase (ALT/SGPT) 10 U/L (16-63) Alkaline Phosphatase 45 U/L (46-116) Total Protein 3.9 g/dL (6.4-8.2) Albumin 2.0 g/dL (3.4-5.0) Albumin/Globulin Ratio 1.1 (1.0-1.7) Laboratory Tests Test 06/04/21 04:15 White Blood Count 10.2 x10^3/uL (4.0-11.0) Red Blood Count 2.04 x10^6/uL (4.30-5.70) Hemoglobin 6.3 g/dL (13.0-17.5) Hematocrit 18.7 % (39.0-53.0) Mean Corpuscular Volume 92 fL (79-100) Mean Corpuscular Hemoglobin 31 pg (25-35) Mean Corpuscular Hemoglobin Concent 34 g/dL (31-37) Red Cell Distribution Width 14.8 % (11.5-14.5) Platelet Count 144 x10^3/uL (140-400) Neutrophils (%) (Auto) 66 % (31-73) Lymphocytes (%) (Auto) 25 % (24-48) Monocytes (%) (Auto) 6 % (0-9) Eosinophils (%) (Auto) 2 % (0-3) Basophils (%) (Auto) 1 % (0-3) Neutrophils # (Auto) 6.7 x10^3/uL (1.8-7.7) Lymphocytes # (Auto) 2.6 x10^3/uL (1.0-4.8) Monocytes # (Auto) 0.6 x10^3/uL (0.0-1.1) Eosinophils # (Auto) 0.2 x10^3/uL (0.0-0.7) Basophils # (Auto) 0.1 x10^3/uL (0.0-0.2) Prothrombin Time 14.8 SEC (11.7-14.0) Prothromb Time International Ratio 1.2 (0.8-1.1) Sodium Level 142 mmol/L (136-145) Potassium Level 3.4 mmol/L (3.5-5.1) Chloride Level 112 mmol/L (98-107) Carbon Dioxide Level 24 mmol/L (21-32) Anion Gap 6 (6-14) Blood Urea Nitrogen 10 mg/dL (8-26) Creatinine 1.0 mg/dL (0.7-1.3) Estimated GFR (Cockcroft-Gault) 90.7 BUN/Creatinine Ratio 10 (6-20) Glucose Level 138 mg/dL (70-99) Calcium Level 7.1 mg/dL (8.5-10.1) Iron Level 23 ug/dL (65-175) Total Iron Binding Capacity 161 ug/dL (250-450) Iron Saturation 14 % (15-34) Total Bilirubin 0.5 mg/dL (0.2-1.0) Gamma Glutamyl Transpeptidase 8 U/L (10-85) Aspartate Amino Transf (AST/SGOT) 9 U/L (15-37) Alanine Aminotransferase (ALT/SGPT) 10 U/L (16-63) Alkaline Phosphatase 45 U/L (46-116) Total Protein 3.9 g/dL (6.4-8.2) Albumin 2.0 g/dL (3.4-5.0) Albumin/Globulin Ratio 1.1 (1.0-1.7) Note drop in hemoglobin. Medications Current Medications Sodium Chloride 1,000 ml @ 1,000 mls/hr 1X ONCE IV Last administered on 06/02/21at 11:00; Start 06/02/21 at 10:45; Stop 06/02/21 at 11:44; Status DC Pantoprazole Sodium 80 mg/ Sodium Chloride 100 ml @ 10 mls/hr 1X ONCE IV Last administered on 06/02/21at 11:00; Start 06/02/21 at 10:45; Stop 06/02/21 at 20:44; Status DC Pantoprazole Sodium (PROTONIX VIAL for IV PUSH) 80 mg 1X ONCE IVP Last administered on 06/02/21at 11:00; Start 06/02/21 at 10:45; Stop 06/02/21 at 11:10; Status DC Iohexol (Omnipaque 300 Mg/ml) 60 ml 1X ONCE IV Last administered on 06/02/21at 12:54; Start 06/02/21 at 12:45; Stop 06/02/21 at 12:46; Status DC Info (CONTRAST GIVEN -- Rx MONITORING) 1 each PRN DAILY PRN MC SEE COMMENTS; Start 06/02/21 at 13:00; Stop 06/04/21 at 12:59 Propofol (Diprivan) 200 mg STK-MED ONCE IV ; Start 06/02/21 at 15:11; Stop 06/02/21 at 15:12; Status DC Lidocaine HCl (Lidocaine Pf 2% Vial) 5 ml STK-MED ONCE .ROUTE ; Start 06/02/21 at 15:11; Stop 06/02/21 at 15:12; Status DC Pantoprazole Sodium 80 mg/ Sodium Chloride 100 ml @ 10 mls/hr Q10H IV Last administered on 06/04/21at 04:23; Start 06/02/21 at 20:45 Potassium Chloride/Dextrose/ Sod Cl 1,000 ml @ 125 mls/hr Q8H IV Last administered on 06/02/21at 22:54; Start 06/02/21 at 22:00; Stop 06/03/21 at 05:59; Status DC Acetaminophen (Tylenol) 650 mg PRN Q6HRS PRN PO MILD PAIN / TEMP > 100.3'F; Start 06/02/21 at 22:00 Ondansetron HCl (Zofran) 4 mg PRN Q4HRS PRN IVP NAUSEA/VOMITING 1ST CHOICE; Start 06/02/21 at 22:00 Tramadol HCl (Ultram) 50 mg PRN Q6HRS PRN PO MODERATE PAIN 4-6; Start 06/02/21 at 22:00 Vitamin B Complex/ Vitamin C (Ericka-Alexia) 1 tab DAILY PO Last administered on 06/04/21at 08:37; Start 06/03/21 at 11:45 Potassium Chloride (Klor-Con) 40 meq 1X ONCE PO ; Start 06/04/21 at 10:45; Stop 06/04/21 at 10:46; Status DC Vitals/I & O Vital Sign - Last 24 Hours 06/03/21 06/03/21 06/03/21 06/03/21 12:00 12:00 15:00 19:00 Temp 99.0 99.1 98.3 99.0 99.1 98.3 Pulse 76 68 78 Resp 20 16 18 B/P (MAP) 146/80 (102) 138/63 (88) 157/63 (94) Pulse Ox 99 100 98 O2 Delivery Room Air Room Air Room Air Room Air 06/03/21 06/03/21 06/04/21 06/04/21 19:30 23:00 03:00 07:00 Temp 99.8 98.8 98.6 99.8 98.8 98.6 Pulse 79 74 72 Resp 20 20 18 B/P (MAP) 144/67 (92) 144/78 (100) 115/61 (79) Pulse Ox 98 95 100 O2 Delivery Room Air Room Air Room Air Room Air 06/04/21 06/04/21 06/04/21 08:00 10:15 10:30 Temp 98.6 98.4 98.6 98.4 Pulse 79 86 Resp 18 16 B/P (MAP) 153/66 141/73 O2 Delivery Room Air Intake and Output 06/03/21 06/03/21 06/04/21 15:00 23:00 07:00 Intake Total 590 ml 833 ml Output Total 400 ml Balance 590 ml 433 ml Problem List Problems Medical Problems: (1) Anemia Status: Acute (2) GI bleed Status: Acute (3) Renal insufficiency Status: Acute Assessment UGI bleed from --benign? No biopsy report at this time. Think hemoglobin drop likely dilutional. Plan of Care Note Could transfuse another unit. Continue PPI drip, clears for now. I think OK to go out of ICU. If stable tomorrow, po PPI and advance diet. F/u biopsies. Justicifation of Admission Dx: Justifications for Admission: Justification of Admission Dx: N/A BURAK JAMESON MD Jun 04, 2021 11:57
--- NOTE | 2021-06-04 13:02 | PDOC ---
[employer] PROGRESS NOTE Date of Service DOS: DATE: 06/04/21 TIME: 13:00 Chief Complaint Chief Complaint Acute blood loss anemia, s/p 2u PRBC, 2 more u ordered today 06/04 acute gastric ulcer, with melena, s/p GI intervention Gastric mass - biopsied ISMAEL - Hypokalemia - likely GI losses. Hold antihypertensives acute anion gap acidosis, better H/o ETOH abuse - Hepatic cysts - noted on CT, no renal cysts noted Hyperglycemia - no DM2 history, w Severe protein calorie malnutrition - concern for intrinsic liver disease, also INR up History of Present Illness History of Present Illness 06/04, hgb drop to 6.3 from 8, may need additional 2 u prbc still in ICU on overflow vitals OK, GI following cont he PPI gtt PO [place] 06/03m considered transfer out of ICU, tele sinus low 70s adat, try clears INR 1.4, not nutritional he "loves spinach" Hgb much better repeat all labs in AM, poss liver disease, priro abuse, check GGT Vitals/I&O Vitals/I&O: Vital Signs Date Time Temp Pulse Resp B/P (MAP) Pulse Ox O2 Delivery O2 Flow Rate FiO2 06/04/21 11:30 98.4 74 17 152/82 98.4 06/04/21 08:00 Room Air 06/04/21 07:00 100 I & O 06/03/21 06/03/21 06/04/21 14:59 22:59 06:59 Intake Total 590 ml 833 ml Output Total 400 ml Balance 590 ml 433 ml Physical Exam General: Alert, Oriented X3, Cooperative, No acute distress Heart: Regular rate, No murmurs Abdomen: Normal bowel sounds, Soft, No tenderness, No hepatosplenomegaly, No masses Extremities: No clubbing, No cyanosis, No edema, Normal pulses, No tenderness/swelling Skin: No rashes, No breakdown, No significant lesion Labs Labs: Laboratory Tests Test 06/04/21 04:15 White Blood Count 10.2 x10^3/uL (4.0-11.0) Red Blood Count 2.04 x10^6/uL (4.30-5.70) Hemoglobin 6.3 g/dL (13.0-17.5) Hematocrit 18.7 % (39.0-53.0) Mean Corpuscular Volume 92 fL (79-100) Mean Corpuscular Hemoglobin 31 pg (25-35) Mean Corpuscular Hemoglobin Concent 34 g/dL (31-37) Red Cell Distribution Width 14.8 % (11.5-14.5) Platelet Count 144 x10^3/uL (140-400) Neutrophils (%) (Auto) 66 % (31-73) Lymphocytes (%) (Auto) 25 % (24-48) Monocytes (%) (Auto) 6 % (0-9) Eosinophils (%) (Auto) 2 % (0-3) Basophils (%) (Auto) 1 % (0-3) Neutrophils # (Auto) 6.7 x10^3/uL (1.8-7.7) Lymphocytes # (Auto) 2.6 x10^3/uL (1.0-4.8) Monocytes # (Auto) 0.6 x10^3/uL (0.0-1.1) Eosinophils # (Auto) 0.2 x10^3/uL (0.0-0.7) Basophils # (Auto) 0.1 x10^3/uL (0.0-0.2) Prothrombin Time 14.8 SEC (11.7-14.0) Prothromb Time International Ratio 1.2 (0.8-1.1) Sodium Level 142 mmol/L (136-145) Potassium Level 3.4 mmol/L (3.5-5.1) Chloride Level 112 mmol/L (98-107) Carbon Dioxide Level 24 mmol/L (21-32) Anion Gap 6 (6-14) Blood Urea Nitrogen 10 mg/dL (8-26) Creatinine 1.0 mg/dL (0.7-1.3) Estimated GFR (Cockcroft-Gault) 90.7 BUN/Creatinine Ratio 10 (6-20) Glucose Level 138 mg/dL (70-99) Calcium Level 7.1 mg/dL (8.5-10.1) Iron Level 23 ug/dL (65-175) Total Iron Binding Capacity 161 ug/dL (250-450) Iron Saturation 14 % (15-34) Total Bilirubin 0.5 mg/dL (0.2-1.0) Gamma Glutamyl Transpeptidase 8 U/L (10-85) Aspartate Amino Transf (AST/SGOT) 9 U/L (15-37) Alanine Aminotransferase (ALT/SGPT) 10 U/L (16-63) Alkaline Phosphatase 45 U/L (46-116) Total Protein 3.9 g/dL (6.4-8.2) Albumin 2.0 g/dL (3.4-5.0) Albumin/Globulin Ratio 1.1 (1.0-1.7) Assessment and Plan Assessmemt and Plan Problems Medical Problems: (1) Anemia Status: Acute (2) GI bleed Status: Acute (3) Renal insufficiency Status: Acute Comment Review of Relevant I have reviewed the following items diane (where applicable) has been applied. Justifications for Admission Other Justification GREGORIO CLIFTON MD Jun 04, 2021 13:02
[2021-06-04 20:52] LABS: HEMATOCRIT 26.4 % (39.0-53.0); HEMOGLOBIN 8.5 g/dL (13.0-17.5); RED BLOOD COUNT 2.91 x10^6/uL (4.30-5.70); RED CELL DISTRIBUTION WIDTH 14.2 % (11.5-14.5); WHITE BLOOD COUNT 9.6 x10^3/uL (4.0-11.0)
[2021-06-05 03:00] VITALS: BP 148/74
[2021-06-05] MEDS: PANTOPRAZOLE SODIUM IV DRIP 80 MG in IV NORMAL SALINE 100ML 100 ML IV SCH ×2 (03:03→08:22)
[2021-06-05 07:00] VITALS: BP 173/84
[2021-06-05 07:13] LABS: HEMATOCRIT 26.3 % (39.0-53.0); HEMOGLOBIN 8.5 g/dL (13.0-17.5); RED BLOOD COUNT 2.88 x10^6/uL (4.30-5.70); RED CELL DISTRIBUTION WIDTH 14.5 % (11.5-14.5)
[2021-06-05 07:32] LABS: CALCIUM 7.5 mg/dL (8.5-10.1); CREATININE 0.9 mg/dL (0.7-1.3); GFR 102.5; POTASSIUM 3.4 mmol/L (3.5-5.1)
[2021-06-05] MEDS: FOLIC/VIT B COMP W-C (RENAL) TABLET. PO SCH (08:21)
--- NOTE | 2021-06-05 10:30 | PDOC ---
Date of Service: DATE: 06/05/21 TIME: 10:28 Subjective: Subjective: No complaints, denies bleeding. Objective: Objective: D/w nurse - tolerating clears since Sat. Dark brown liquid stools. No blood since Sat morning. Vital Signs: Vital Signs Date Time Temp Pulse Resp B/P (MAP) Pulse Ox O2 Delivery O2 Flow Rate FiO2 06/05/21 08:00 Room Air 06/05/21 03:00 99.3 66 20 148/74 (98) 99 99.3 Labs: Laboratory Tests Test 06/04/21 20:38 06/05/21 06:45 White Blood Count 9.6 x10^3/uL 9.0 x10^3/uL Red Blood Count 2.91 x10^6/uL 2.88 x10^6/uL Hemoglobin 8.5 g/dL 8.5 g/dL Hematocrit 26.4 % 26.3 % Mean Corpuscular Volume 91 fL 91 fL Mean Corpuscular Hemoglobin 29 pg 29 pg Mean Corpuscular Hemoglobin Concent 32 g/dL 32 g/dL Red Cell Distribution Width 14.2 % 14.5 % Platelet Count 160 x10^3/uL 166 x10^3/uL Sodium Level 143 mmol/L Potassium Level 3.4 mmol/L Chloride Level 112 mmol/L Carbon Dioxide Level 26 mmol/L Anion Gap 5 Blood Urea Nitrogen 3 mg/dL Creatinine 0.9 mg/dL Estimated GFR (Cockcroft-Gault) 102.5 Glucose Level 93 mg/dL Calcium Level 7.5 mg/dL PE: GEN: NAD - had covers over head LUNGS: CTAB HEART: RRR ABD: NABS, S/ND/NT NEURO/PSYCH: A & O 3 A/P: Large - path pending STEVE/ACD - now stable after transfusions Hematochezia/melena - resolved -- Change to PO PPI. Advance diet. Okay to transfer out of ICU. Justicifation of Admission Dx: Justifications for Admission: Justification of Admission Dx: N/A VASU BELCHER Jun 05, 2021 10:30
[2021-06-05 11:00] VITALS: BP 164/89
--- NOTE | 2021-06-05 12:18 | PDOC ---
[employer] PROGRESS NOTE Date of Service DOS: DATE: 06/05/21 TIME: 12:14 Chief Complaint Chief Complaint Acute blood loss anemia, s/p 2u PRBC, 2 more u ordered today 06/04 acute gastric ulcer, with melena, s/p GI intervention Gastric mass - biopsied ISMAEL - Hypokalemia - likely GI losses. Hold antihypertensives acute anion gap acidosis, better H/o ETOH abuse - Hepatic cysts - noted on CT, no renal cysts noted Hyperglycemia - no DM2 history, w Severe protein calorie malnutrition - concern for intrinsic liver disease, also INR up History of Present Illness History of Present Illness 06/05: Afebrile. Patient had bowel movement this morning with dark blood, likely still residual from gastric ulcer. Hemoglobin 8.5, stable from repeat hemoglobin yesterday. Will discharge on PPI. Recommend close outpatient follow-up with PCP. Greater than 30 minutes spent in the management of this patients discharge. 06/04, hgb drop to 6.3 from 8, may need additional 2 u prbc still in ICU on overflow vitals OK, GI following cont he PPI gtt PO [place] 06/03m considered transfer out of ICU, tele sinus low 70s adat, try clears INR 1.4, not nutritional he "loves spinach" Hgb much better repeat all labs in AM, poss liver disease, priro abuse, check GGT Vitals/I&O Vitals/I&O: Vital Signs Date Time Temp Pulse Resp B/P (MAP) Pulse Ox O2 Delivery O2 Flow Rate FiO2 06/05/21 11:00 98.4 64 16 164/89 (114) 100 Room Air 98.4 I & O 06/04/21 06/04/21 06/05/21 15:00 23:00 07:00 Intake Total 363 ml 1250 ml 500 ml Output Total 1101 ml 500 ml Balance 363 ml 149 ml 0 ml Physical Exam General: Alert, Oriented X3, Cooperative, No acute distress Heart: Regular rate, No murmurs Lungs: Clear Abdomen: Normal bowel sounds, Soft, No tenderness, No hepatosplenomegaly, No masses Extremities: No clubbing, No cyanosis, No edema, Normal pulses, No tenderness/swelling Skin: No rashes, No breakdown, No significant lesion Labs Labs: Laboratory Tests Test 06/04/21 20:38 3/28/22 06:45 White Blood Count 9.6 x10^3/uL (4.0-11.0) 9.0 x10^3/uL (4.0-11.0) Red Blood Count 2.91 x10^6/uL (4.30-5.70) 2.88 x10^6/uL (4.30-5.70) Hemoglobin 8.5 g/dL (13.0-17.5) 8.5 g/dL (13.0-17.5) Hematocrit 26.4 % (39.0-53.0) 26.3 % (39.0-53.0) Mean Corpuscular Volume 91 fL (79-100) 91 fL (79-100) Mean Corpuscular Hemoglobin 29 pg (25-35) 29 pg (25-35) Mean Corpuscular Hemoglobin Concent 32 g/dL (31-37) 32 g/dL (31-37) Red Cell Distribution Width 14.2 % (11.5-14.5) 14.5 % (11.5-14.5) Platelet Count 160 x10^3/uL (140-400) 166 x10^3/uL (140-400) Sodium Level 143 mmol/L (136-145) Potassium Level 3.4 mmol/L (3.5-5.1) Chloride Level 112 mmol/L (98-107) Carbon Dioxide Level 26 mmol/L (21-32) Anion Gap 5 (6-14) Blood Urea Nitrogen 3 mg/dL (8-26) Creatinine 0.9 mg/dL (0.7-1.3) Estimated GFR (Cockcroft-Gault) 102.5 Glucose Level 93 mg/dL (70-99) Calcium Level 7.5 mg/dL (8.5-10.1) Assessment and Plan Assessmemt and Plan Problems Medical Problems: (1) Anemia Status: Acute (2) GI bleed Status: Acute (3) Renal insufficiency Status: Acute Comment Review of Relevant I have reviewed the following items diane (where applicable) has been applied. Justifications for Admission Other Justification NATHAN FLORES MD Jun 05, 2021 12:18
--- NOTE | 2021-06-05 12:21 | PDOC3 ---
Discharge Summary Visit Information Date of Admission: Jun 02, 2021 Date of Discharge: Jun 05, 2021 Final Diagnosis Problems Medical Problems: (1) Anemia Status: Acute (2) GI bleed Status: Acute (3) Renal insufficiency Status: Acute Brief Hospital Course Allergies Allergies Coded Allergies Type Severity Reaction Last Updated Verified No Known Drug Allergies 06/02/21 No Vital Signs Vital Signs Date Time Temp Pulse Resp B/P (MAP) Pulse Ox O2 Delivery O2 Flow Rate FiO2 06/05/21 11:00 98.4 64 16 164/89 (114) 100 Room Air 98.4 Lab Results Laboratory Tests Test 06/04/21 04:15 06/04/21 20:38 06/05/21 06:45 White Blood Count 10.2 x10^3/uL (4.0-11.0) 9.6 x10^3/uL (4.0-11.0) 9.0 x10^3/uL (4.0-11.0) Red Blood Count 2.04 x10^6/uL (4.30-5.70) 2.91 x10^6/uL (4.30-5.70) 2.88 x10^6/uL (4.30-5.70) Hemoglobin 6.3 g/dL (13.0-17.5) 8.5 g/dL (13.0-17.5) 8.5 g/dL (13.0-17.5) Hematocrit 18.7 % (39.0-53.0) 26.4 % (39.0-53.0) 26.3 % (39.0-53.0) Mean Corpuscular Volume 92 fL (79-100) 91 fL (79-100) 91 fL (79-100) Mean Corpuscular Hemoglobin 31 pg (25-35) 29 pg (25-35) 29 pg (25-35) Mean Corpuscular Hemoglobin Concent 34 g/dL (31-37) 32 g/dL (31-37) 32 g/dL (31-37) Red Cell Distribution Width 14.8 % (11.5-14.5) 14.2 % (11.5-14.5) 14.5 % (11.5-14.5) Platelet Count 144 x10^3/uL (140-400) 160 x10^3/uL (140-400) 166 x10^3/uL (140-400) Neutrophils (%) (Auto) 66 % (31-73) Lymphocytes (%) (Auto) 25 % (24-48) Monocytes (%) (Auto) 6 % (0-9) Eosinophils (%) (Auto) 2 % (0-3) Basophils (%) (Auto) 1 % (0-3) Neutrophils # (Auto) 6.7 x10^3/uL (1.8-7.7) Lymphocytes # (Auto) 2.6 x10^3/uL (1.0-4.8) Monocytes # (Auto) 0.6 x10^3/uL (0.0-1.1) Eosinophils # (Auto) 0.2 x10^3/uL (0.0-0.7) Basophils # (Auto) 0.1 x10^3/uL (0.0-0.2) Prothrombin Time 14.8 SEC (11.7-14.0) Prothromb Time International Ratio 1.2 (0.8-1.1) Sodium Level 142 mmol/L (136-145) 143 mmol/L (136-145) Potassium Level 3.4 mmol/L (3.5-5.1) 3.4 mmol/L (3.5-5.1) Chloride Level 112 mmol/L (98-107) 112 mmol/L (98-107) Carbon Dioxide Level 24 mmol/L (21-32) 26 mmol/L (21-32) Anion Gap 6 (6-14) 5 (6-14) Blood Urea Nitrogen 10 mg/dL (8-26) 3 mg/dL (8-26) Creatinine 1.0 mg/dL (0.7-1.3) 0.9 mg/dL (0.7-1.3) Estimated GFR (Cockcroft-Gault) 90.7 102.5 BUN/Creatinine Ratio 10 (6-20) Glucose Level 138 mg/dL (70-99) 93 mg/dL (70-99) Calcium Level 7.1 mg/dL (8.5-10.1) 7.5 mg/dL (8.5-10.1) Iron Level 23 ug/dL (65-175) Total Iron Binding Capacity 161 ug/dL (250-450) Iron Saturation 14 % (15-34) Total Bilirubin 0.5 mg/dL (0.2-1.0) Gamma Glutamyl Transpeptidase 8 U/L (10-85) Aspartate Amino Transf (AST/SGOT) 9 U/L (15-37) Alanine Aminotransferase (ALT/SGPT) 10 U/L (16-63) Alkaline Phosphatase 45 U/L (46-116) Total Protein 3.9 g/dL (6.4-8.2) Albumin 2.0 g/dL (3.4-5.0) Albumin/Globulin Ratio 1.1 (1.0-1.7) Laboratory Tests Test 06/04/21 20:38 06/05/21 06:45 White Blood Count 9.6 x10^3/uL (4.0-11.0) 9.0 x10^3/uL (4.0-11.0) Red Blood Count 2.91 x10^6/uL (4.30-5.70) 2.88 x10^6/uL (4.30-5.70) Hemoglobin 8.5 g/dL (13.0-17.5) 8.5 g/dL (13.0-17.5) Hematocrit 26.4 % (39.0-53.0) 26.3 % (39.0-53.0) Mean Corpuscular Volume 91 fL (79-100) 91 fL (79-100) Mean Corpuscular Hemoglobin 29 pg (25-35) 29 pg (25-35) Mean Corpuscular Hemoglobin Concent 32 g/dL (31-37) 32 g/dL (31-37) Red Cell Distribution Width 14.2 % (11.5-14.5) 14.5 % (11.5-14.5) Platelet Count 160 x10^3/uL (140-400) 166 x10^3/uL (140-400) Sodium Level 143 mmol/L (136-145) Potassium Level 3.4 mmol/L (3.5-5.1) Chloride Level 112 mmol/L (98-107) Carbon Dioxide Level 26 mmol/L (21-32) Anion Gap 5 (6-14) Blood Urea Nitrogen 3 mg/dL (8-26) Creatinine 0.9 mg/dL (0.7-1.3) Estimated GFR (Cockcroft-Gault) 102.5 Glucose Level 93 mg/dL (70-99) Calcium Level 7.5 mg/dL (8.5-10.1) Brief Hospital Course Mr. Jordan is a 65 old male who presented with bleeding gastric ulcer. Consultation placed to GI. He was transfused multiple units of blood given hemoglobin <7. He had EGD that showed large , biopsies were taken. On last admission his hemoglobin remained stable, patient was comfortable with discharging home with PCP follow-up. Discharge Information Condition at Discharge: Improved Disposition/Orders: D/C to Home Justicifation of Admission Dx: Justifications for Admission: Justification of Admission Dx: N/A NATHAN FLORES MD Jun 05, 2021 12:21
[2021-06-05] MEDS ORDERED: PANT40TA77 PO (12:25)
[2021-06-05] MEDS ORDERED: PANTOPRAZOLE 40 MG TABLET.DR. PO SCH (16:30)
--- NOTE | 2021-06-06 14:35 | EKG ---
[facility] [address] [place] [address] Test Date: 2021-06-02 Test Time: 10:27:31 Pat Name: BENJI CROOK Department: Room: 108 1 Gender: M Manager Of Development: : 1955 Requested By: GREGORIO CLIFTON Order Number: [id number] Reading MD: Moe Augustin Measurements Intervals [place] Rate: 95 P: -4 MI: 134 QRS: 53 QRSD: 86 T: 52 QT: 406 QTc: 514 Interpretive Statements SINUS RHYTHM VENTRICULAR PREMATURE COMPLEX(ES) PROLONGED QT ABNORMAL ECG RI6.01 No previous ECG available for comparison Electronically Signed On 06-10-2021 21:57:25 CDT by Moe Augustin
--- NOTE | 2021-06-06 16:07 | PATHOLOGY ---
[facility] Accession Number: [id number] . 01 Material submitted: . gastrointestinal site - GASTRIC ULCER . 01 Clinical history: . GI BLEED EGD . 02 Diagnosis: Gastric biopsies, antral ulcer: - Focal ulceration and necrosis with marked acute and chronic inflammation, reactive foveolar hyperplasia, and focal intestinal metaplasia. - Few Helicobacter organisms identified. (JPM:pit; 06/06/2021) QTP 06/06/2021 1422 Local . 02 Comment: Sections of the gastric biopsy reveal segments of gastric antral mucosa showing focal mucosal ulceration and necrosis with marked acute and chronic inflammation, reactive foveolar hyperplasia, and intestinal metaplasia. A properly controlled immunoperoxidase stain for Helicobacter is obtained. A few Helicobacter organisms are identified. There is no evidence of malignancy. (JPM:pit; 06/06/2021) . Special stain performed: Immunoperoxidase stain for Helicobacter on A1. . 02 Electronically signed: . José Miguel Vieyra MD, Pathologist NPI- [id number] . 01 Gross description: . The specimen is received in formalin, labeled "Cm Jordan, gastric ulcer". Received is a single, catherine-pink, soft tissue fragment, measuring 0.5 cm, in greatest dimension. The specimen is entirely submitted cassette A1. (JGG; 06/05/2021) JGG/JGG 06/05/2021 1639 Local . 02 Pathologist provided ICD-10: K29.00, K29.50, K26.9, B96.81 . 02 CPT . 729081, S19017 Specimen Comment: A courtesy copy of this report has been sent to [phone], [phone] Specimen Comment: [id number] Specimen Comment: Report sent to / DR JAMESON Performed at: 01 [facility] [address], [place], [place] [id number] MD Sandor Jamil MD Phone: [phone] Performed at: 02 [facility] [address] [place], [place] [id number] MD José Miguel Vieyra MD Phone: [phone]
== END 2021-06-05 18:00 | disposition home or self-care (01) | DRG 377 ==
LOC: ER 10:20 → 1 WEST ICU 11:21
PROVIDERS: ADMIT Internal Medicine; ATTEND Internal Medicine
PROC: 30233N1 Transfusion of Nonautologous Red Blood Cells into Peripheral Vein, Percutaneous Approach (ICD-10-PCS; 2021-06-02)
PROC: 0DB68ZX Excision of Stomach, Via Natural or Artificial Opening Endoscopic, Diagnostic (ICD-10-PCS; principal; 2021-06-02 15:00)
DX: K25.0 Acute gastric ulcer with hemorrhage (principal); E43 Unspecified severe protein-calorie malnutrition; N17.0 Acute kidney failure with tubular necrosis; D62 Acute posthemorrhagic anemia; E87.2 Acidosis; E87.6 Hypokalemia; F17.210 Nicotine dependence, cigarettes, uncomplicated; I10 Essential (primary) hypertension; K31.9 Disease of stomach and duodenum, unspecified; K76.89 Other specified diseases of liver; Z79.82 Long term (current) use of aspirin; Z82.49 Family history of ischemic heart disease and other diseases of the circulatory system; D50.9 Iron deficiency anemia, unspecified; I95.9 Hypotension, unspecified; R73.9 Hyperglycemia, unspecified; Z68.27 Body mass index [BMI] 27.0-27.9, adult
CPT/HCPCS: 36415; 36430; 43239; 74177; 80048; 80053; 82977; 83540; 83550; 83690; 85014; 85018; 85025; 85027; 85610; 85730; 86850; 86900; 86901; 86920; 88305; 88342; 93005; 96365; 96376; C9113; J2704; J3480; J7030; P9016; Q9967; 99291-25; G0378